=== PATIENT | male | born 1980 | race Caucasian/White ===

== ENCOUNTER 2017-11-02 09:21 | Emergency (ER) | payer OTHER ==
[~2017-11-02] VITALS: Ht 180.3 cm; Wt 81.1 kg
[~2017-11-02 09:21] MED LIST: MOTRIN800 MG PO; NORCO 7.5/321 TABLET PO; WELLBUTRIN SR150 MG PO
[2017-11-02 10:47] VITALS: BP 113/72
== END 2017-11-02 10:49 | disposition left against medical advice (07) ==
LOC: EME 09:21
PROVIDERS: Emergency Medicine
DX: J10.1 Influenza due to other identified influenza virus with other respiratory manifestations (principal); F17.200 Nicotine dependence, unspecified, uncomplicated
CPT/HCPCS: 87502